=== PATIENT | female | born 1960 | race Caucasian/White ===

== ENCOUNTER 2018-08-25 10:33 | Emergency (ER) | payer BC ==
[~2018-08-25] VITALS: Ht 165.1 cm; Wt 73.9 kg
--- NOTE | ~2018-08-25 | EKG ---
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
[~2018-08-25 10:33] MED LIST: 'PARAFON FORTE500 M1 PO; FIORINAL 325 MG1 CAP PO; HYDROCODONE BIT1 T11 PO; KETOROLAC10 MG PO; NAPROSYN500 MG PO
[2018-08-25 10:49] LABS: BASO # 0.1 10*3/uL (0.0-0.1); BASO % 1.4 % (0.0-1.0); EOS # 0.5 10*3/uL (0.0-0.4); EOS % 5.9 % (1.0-4.0); HEMATOCRIT 45.1 % (37.0-47.0); HEMOGLOBIN 15.1 g/dl (12.0-16.0); LYMPH # 2.4 10*3/uL (1.3-4.4); LYMPH % 30.8 % (27.0-41.0); MEAN CELL VOLUME 101.8 fl (81.0-99.0); MEAN CORPUSCULAR HGB 34.1 pg (27.0-31.0); MEAN CORPUSCULAR HGB CONC 33.5 g/dl (33.0-37.0); MEAN PLATELET VOLUME 8.7 fl (9.6-12.3); MONO # 0.5 10*3/uL (0.1-1.0); MONO % 6.9 % (3.0-9.0); NEUT # 4.2 10*3/uL (2.3-7.9); NEUT % 54.7 % (47.0-73.0); PLATELET COUNT AUTOMATED 328 10*3/uL (130-400); RED BLOOD COUNT 4.43 10*6/uL (4.10-5.10); RED CELL DISTRI WIDTH 12.4 % (0-14.5); WHITE BLOOD COUNT 7.7 10*3/uL (4.8-10.8)
[2018-08-25 11:01] LABS: ACT PARTIAL THROMBO TIME 28.2 SECONDS (20.0-32.1); INTERNATIONAL NORM RATIO 0.9 (2.0-3.5)
[2018-08-25 11:06] LABS: ALBUMIN 3.5 gm/dl (3.1-4.5); ALKALINE PHOSPHATASE 96 U/L (45-117); BUN 9 mg/dl (7-24); CHLORIDE 104 mmol/L (98-107); CREATININE 0.94 mg/dL (0.55-1.02); POTASSIUM 4.4 mmol/L (3.5-5.1); SGOT/AST 14 IU/L (3-35); SGPT/ALT 17 U/L (12-78); SODIUM 139 mmol/L (136-145); TOTAL PROTEIN 7.9 gm/dL (6.4-8.2)
[2018-08-25 11:08] LABS: TROPONIN I < 0.015 ng/ml (<0.045)
[2018-08-25] MEDS ORDERED: GOOD NEIGHBOR M25 M1 PO (12:36)
== END 2018-08-25 12:50 | disposition home or self-care (01) ==
LOC: ED 10:33
PROVIDERS: Emergency Medicine
DX: H83.09 Labyrinthitis, unspecified ear (principal); I10 Essential (primary) hypertension; Z79.899 Other long term (current) drug therapy

== ENCOUNTER 2024-01-01 03:31 | Emergency (ER) | payer SELFPAY ==
[~2024-01-01] VITALS: Wt 77.1 kg
[~2024-01-01 03:31] MED LIST changes: +GOOD NEIGHBOR M25 M1 PO
[2024-01-01] MEDS ORDERED: MG-AL HYDROXIDE/SIMETICONE 30 ML UDC PO STA (03:44)
[2024-01-01] MEDS ORDERED: Lidocaine Hydrochloride 15 ML UDC PO STA (03:44)
[2024-01-01] MEDS ORDERED: Dicyclomine Hydrochloride 20 MG/10 ML OSYR PO STA (03:44)
[2024-01-01] MEDS ORDERED: LORazepam 0.5 MG TAB PO ONE (03:45)
[2024-01-01 04:06] LABS: BASO # 0.1 10*3/uL (0.0-0.1); BASO % 1.1 % (0.0-1.0); EOS # 0.6 10*3/uL (0.0-0.4); EOS % 7.9 % (1.0-4.0); HEMATOCRIT 43.5 % (37.0-47.0); LYMPH # 1.6 10*3/uL (1.3-4.4); LYMPH % 22.2 % (27.0-41.0); MEAN CELL VOLUME 105.6 fl (81.0-99.0); MEAN CORPUSCULAR HGB 33.3 pg (27.0-31.0); MEAN CORPUSCULAR HGB CONC 31.5 g/dl (33.0-37.0); MEAN PLATELET VOLUME 8.4 fl (9.6-12.3); MONO # 0.6 10*3/uL (0.1-1.0); MONO % 7.8 % (3.0-9.0); NEUT # 4.4 10*3/uL (2.3-7.9); NEUT % 60.9 % (47.0-73.0); PLATELET COUNT AUTOMATED 304 10*3/uL (130-400); RED BLOOD COUNT 4.12 10*6/uL (4.10-5.10); RED CELL DISTRI WIDTH 13.1 % (0-14.5); WHITE BLOOD COUNT 7.2 10*3/uL (4.8-10.8)
[2024-01-01] MEDS ORDERED: PEPCID20 MG PO (04:49)
== END 2024-01-01 05:15 | disposition home or self-care (01) ==
LOC: ED 03:31
PROVIDERS: Internal Medicine
DX: K21.9 Gastro-esophageal reflux disease without esophagitis (principal); I10 Essential (primary) hypertension; Z98.890 Other specified postprocedural states; Z87.891 Personal history of nicotine dependence

== ENCOUNTER 2024-05-04 02:09 | Emergency (ER) | payer MEDICARE, OTHER ==
[~2024-05-04] VITALS: Ht 165.1 cm; Wt 703.1 kg
[~2024-05-04 02:09] MED LIST changes: +PEPCID20 MG PO
[2024-05-04] MEDS ORDERED: NORVASC5 MG PO (02:19)
[2024-05-04 02:45] LABS: BASO # 0.1 10*3/uL (0.0-0.1); BASO % 1.1 % (0.0-1.0); EOS # 0.7 10*3/uL (0.0-0.4); EOS % 6.3 % (1.0-4.0); HEMATOCRIT 39.7 % (37.0-47.0); MEAN CELL VOLUME 101.8 fl (81.0-99.0); MEAN CORPUSCULAR HGB 33.1 pg (27.0-31.0); MEAN CORPUSCULAR HGB CONC 32.5 g/dl (33.0-37.0); MEAN PLATELET VOLUME 8.5 fl (9.6-12.3); MONO # 0.7 10*3/uL (0.1-1.0); MONO % 6.9 % (3.0-9.0); NEUT # 6.4 10*3/uL (2.3-7.9); NEUT % 61.8 % (47.0-73.0); PLATELET COUNT AUTOMATED 306 10*3/uL (130-400); RED CELL DISTRI WIDTH 12.8 % (0-14.5); WHITE BLOOD COUNT 10.3 10*3/uL (4.8-10.8)
[2024-05-04 02:56] LABS: ACT PARTIAL THROMBO TIME 29.2 SECONDS (20.0-32.1)
[2024-05-04 03:05] LABS: POTASSIUM 4.1 mmol/L (3.4-5.1)
[2024-05-04] MEDS ORDERED: MG-AL HYDROXIDE/SIMETICONE 30 ML UDC PO STA (04:21)
[2024-05-04] MEDS ORDERED: Lidocaine Hydrochloride 15 ML UDC PO STA (04:21)
[2024-05-04] MEDS ORDERED: Dicyclomine Hydrochloride 20 MG/10 ML OSYR PO STA (04:21)
[2024-05-04] MEDS ORDERED: ACID REDUCER10 MG PO (04:51)
== END 2024-05-04 05:22 | disposition home or self-care (01) ==
LOC: ED 02:09
PROVIDERS: Internal Medicine
DX: K21.9 Gastro-esophageal reflux disease without esophagitis (principal); I10 Essential (primary) hypertension; Z98.890 Other specified postprocedural states; Z87.891 Personal history of nicotine dependence